=== PATIENT | male | born 1970 | race Caucasian/White ===

== ENCOUNTER 2018-06-23 14:47 | Emergency (ER) | payer MEDICARE, MEDICAID, SELFPAY ==
[2018-06-23 15:43] VITALS: BP 129/83; PULSE 92; RESP 18; TEMP 36.7; O2SAT 99
--- NOTE | 2018-06-23 16:01 | W.ED.GENAD ---
Discharge Plan Disposition Patient Disposition: HOME Condition: Good Discharge Details Chief Complaint: GenMedical Clinical Impression: Concern about sexually transmitted disease in male without diagnosis Reason For Visit: exposure Primary Care Provider: Joshua Roque ED Provider: Wan James Meds and New Rx's Prescriptions: Continue fluoxetine [Prozac] 40 MG capsule 40 mg PO DAILY RF: 0 clonazepam 1 MG tablet 0.5 mg PO BID RF: 0 dextroamphetamine-amphetamine [Adderall] 20 MG tablet 20 mg PO BID RF: 0 bupropion HCl 150 MG tablet extended release 12 hr 150 mg PO DAILY RF: 0 Discharge Instructions Instructions: Sexually Transmitted Diseases (ED) Additional Instructions: You will need to follow up with your PCP later this week to be sure all studies are completed and that you have the results. Return to ED for questions/problems. Referrals: Joshua Roque [Primary Care Provider] - Medical Decision Making MDM Narrative Medical decision making narrative: Discussed with patient the low likelihood of testing to be positive since he isn't even sure any of the story he has been told is true or not. He has no symptoms of any STI or disease process. He is extremely anxious and worried, however, and wants to be tested anyway. We discussed other STI and that if we were going to test for HIV, we should probably test for all of them. He agreed with this. I also instructed him that he will need to follow up with his PCP so we can make sure all the results are followed up and conveyed to him. He agrees to this. We will draw blood and we will get urine and discharge home. HPI - General Adult General Mode of arrival: ambulatory. Date/Time Provider Initiated Documentation: 06/23/18 15:52. Limitations to Documentation: no limitations. Information obtained by: patient. HPI Narrative: Patient presents to ED asking for HIV testing. He just found out that his girlfriend has been having sexual relations with someone who he says has AIDS. He is extremely upset and anxious. He denies any physical complaints. He has no fevers, sweats, weight loss, enlarged nodes, rash, penile lesions, discharge. He is not suicidal or homicidal. He does have a PCP. As far as he is aware, he has no type of chronic disease just psychiatric problems. Related Data Home Medications Medication Instructions Recorded Confirmed clonazepam 0.5 mg PO BID 05/14/13 06/23/18 dextroamphetamine-amphetamine 20 mg PO BID 02/05/17 06/23/18 [Adderall] fluoxetine [Prozac] 40 mg PO DAILY tab-cap 04/24/17 06/23/18 bupropion HCl 150 mg PO DAILY 11/14/17 06/23/18 Allergies Allergy/AdvReac Type Severity Reaction Status Date / Time No Known Allergies Allergy Unverified 11/14/17 10:18 General Stated Complaint: Patient Exposure Risk ALINE: 4 Review of Systems Constitutional Denies chills, Denies fatigue, Denies fever(s), Denies headache(s), Denies malaise, Denies night sweats, Denies weakness and Denies weight loss ENT Denies otalgia, Denies headache(s), Denies nasal congestion, Denies nasal discharge and Denies sore throat Cardiovascular Denies chest pain, Denies rapid heart rate, Denies palpitations and Denies dyspnea Respiratory Denies cough and Denies dyspnea Gastrointestinal Denies abdominal pain, Denies diarrhea, Denies nausea and Denies vomiting Genitourinary Denies hematuria, Denies genital lesions, Denies genital pain, Denies dysuria, Denies penile discharge, Denies scrotal swelling and Denies testicular pain Musculoskeletal Denies back pain, Denies myalgias, Denies arthralgias, Denies numbness and Denies tingling Integumentary/Breasts Denies lesions, Denies rash and Denies sores Neurologic Denies confusion, Denies headache(s), Denies numbness, Denies tingling, Denies paresthesias and Denies weakness Psychiatric Reports anxiety, Denies confusion, Denies homicidal ideation and Denies suicidal ideation Endocrine Denies fatigue and Denies palpitations [facility] Medical History Anxiety (Chronic) Depression (Chronic) Social History Smoking/Tobacco Use Status: Never alcohol intake: current alcohol intake frequency: a few times a month substance use type: does not use Exam Const General: cooperative, healthy appearing and no acute distress Orientation: alert and oriented x3 HENMT Head: normocephalic and atraumatic Eyes Conjunctivae: conjunctivae normal Pupils: PERRL EOM: EOM intact bilaterally Neck Neck: no lymphadenopathy and supple Resp Effort & Inspection: normal respiratory effort Auscultation: clear to auscultation bilaterally Cardio Rate: regular rate Rhythm: regular rhythm Heart Sounds: S1 normal and S2 normal Skin Rashes: no rashes Neuro General: alert, oriented x3, gait normal, moves all extremities and CN's II-XI intact bilaterally Sensory Exam: no sensory deficits noted Psych Appearance: well kempt Mental Status: mental status grossly normal Speech and Movement: speech and movement normal Mood: congruent mood Affect: normal affect Attitude: cooperative Thought Process: normal Thought Content: normal Insight: insight good Judgment: judgment good Course Vital Signs Temperature 98.1 F 06/23/18 15:43 Pulse 92 H 06/23/18 15:43 Respiratory Rate 18 06/23/18 15:43 Blood Pressure 129/83 06/23/18 15:43 Pulse Oximetry 99 06/23/18 15:43 Temperature 98.1 F 06/23/18 15:43 Pulse 92 H 06/23/18 15:43 Respiratory Rate 18 06/23/18 15:43 Blood Pressure 129/83 06/23/18 15:43 Pulse Oximetry 99 06/23/18 15:43
--- NOTE | 2018-06-23 16:04 | ED.GENADUL_ITS ---
Discharge Plan Disposition Patient Disposition: HOME Condition: Good Discharge Details Chief Complaint: GenMedical Clinical Impression: Concern about sexually transmitted disease in male without diagnosis Reason For Visit: exposure Primary Care Provider: Joshua Roque ED Provider: Wan James Meds and New Rx's Prescriptions: Continue fluoxetine [Prozac] 40 MG capsule 40 mg PO DAILY RF: 0 clonazepam 1 MG tablet 0.5 mg PO BID RF: 0 dextroamphetamine-amphetamine [Adderall] 20 MG tablet 20 mg PO BID RF: 0 bupropion HCl 150 MG tablet extended release 12 hr 150 mg PO DAILY RF: 0 Discharge Instructions Instructions: Sexually Transmitted Diseases (ED) Additional Instructions: You will need to follow up with your PCP later this week to be sure all studies are completed and that you have the results. Return to ED for questions/ problems. Referrals: Joshua Roque [Primary Care Provider] - Medical Decision Making MDM Narrative Medical decision making narrative: Discussed with patient the low likelihood of testing to be positive since he isn't even sure any of the story he has been told is true or not. He has no symptoms of any STI or disease process. He is extremely anxious and worried, however, and wants to be tested anyway. We discussed other STI and that if we were going to test for HIV, we should probably test for all of them. He agreed with this. I also instructed him that he will need to follow up with his PCP so we can make sure all the results are followed up and conveyed to him. He agrees to this. We will draw blood and we will get urine and discharge home. HPI - General Adult General Mode of arrival: ambulatory . Date/Time Provider Initiated Documentation: 06/23/18 15:52 . Limitations to Documentation: no limitations . Information obtained by: patient . HPI Narrative: Patient presents to ED asking for HIV testing. He just found out that his girlfriend has been having sexual relations with someone who he says has AIDS. He is extremely upset and anxious. He denies any physical complaints. He has no fevers, sweats, weight loss, enlarged nodes, rash, penile lesions, discharge. He is not suicidal or homicidal. He does have a PCP. As far as he is aware, he has no type of chronic disease just psychiatric problems. Related Data Home Medications Medication Instructions Recorded Confirmed clonazepam 0.5 mg PO BID 05/14/13 06/23/18 dextroamphetamine-amphetamine 20 mg PO BID 02/05/17 06/23/18 [Adderall] fluoxetine [Prozac] 40 mg PO DAILY tab-cap 04/24/17 06/23/18 bupropion HCl 150 mg PO DAILY 11/14/17 06/23/18 Allergies Allergy/AdvReac Type Severity Reaction Status Date / Time No Known Allergies Allergy Unverified 11/14/17 10:18 General Stated Complaint: Patient Exposure Risk ALINE: 4 Review of Systems Constitutional Denies chills, Denies fatigue, Denies fever(s), Denies headache(s), Denies malaise, Denies night sweats, Denies weakness and Denies weight loss ENT Denies otalgia, Denies headache(s), Denies nasal congestion, Denies nasal discharge and Denies sore throat Cardiovascular Denies chest pain, Denies rapid heart rate, Denies palpitations and Denies dyspnea Respiratory Denies cough and Denies dyspnea Gastrointestinal Denies abdominal pain, Denies diarrhea, Denies nausea and Denies vomiting Genitourinary Denies hematuria, Denies genital lesions, Denies genital pain, Denies dysuria, Denies penile discharge, Denies scrotal swelling and Denies testicular pain Musculoskeletal Denies back pain, Denies myalgias, Denies arthralgias, Denies numbness and Denies tingling Integumentary/Breasts Denies lesions, Denies rash and Denies sores Neurologic Denies confusion, Denies headache(s), Denies numbness, Denies tingling, Denies paresthesias and Denies weakness Psychiatric Reports anxiety, Denies confusion, Denies homicidal ideation and Denies suicidal ideation Endocrine Denies fatigue and Denies palpitations [facility] Medical History Anxiety (Chronic) Depression (Chronic) Social History Smoking/Tobacco Use Status: Never alcohol intake: current alcohol intake frequency: a few times a month substance use type: does not use Exam Const General: cooperative, healthy appearing and no acute distress Orientation: alert and oriented x3 HENMT Head: normocephalic and atraumatic Eyes Conjunctivae: conjunctivae normal Pupils: PERRL EOM: EOM intact bilaterally Neck Neck: no lymphadenopathy and supple Resp Effort & Inspection: normal respiratory effort Auscultation: clear to auscultation bilaterally Cardio Rate: regular rate Rhythm: regular rhythm Heart Sounds: S1 normal and S2 normal Skin Rashes: no rashes Neuro General: alert, oriented x3, gait normal, moves all extremities and CN's II-XI intact bilaterally Sensory Exam: no sensory deficits noted Psych Appearance: well kempt Mental Status: mental status grossly normal Speech and Movement: speech and movement normal Mood: congruent mood Affect: normal affect Attitude: cooperative Thought Process: normal Thought Content: normal Insight: insight good Judgment: judgment good Course Vital Signs Temperature 98.1 F 06/23/18 15:43 Pulse 92 H 06/23/18 15:43 Respiratory Rate 18 06/23/18 15:43 Blood Pressure 129/83 06/23/18 15:43 Pulse Oximetry 99 06/23/18 15:43 Temperature 98.1 F 06/23/18 15:43 Pulse 92 H 06/23/18 15:43 Respiratory Rate 18 06/23/18 15:43 Blood Pressure 129/83 06/23/18 15:43 Pulse Oximetry 99 06/23/18 15:43
[2018-06-23 17:32] VITALS: BP 138/88; PULSE 85; RESP 18; TEMP 37.6; O2SAT 99
[2018-06-26 11:11] LABS: Syphilis Serology (RPR) Negative (Negative)
[2018-06-26 11:13] LABS: Hepatitis B Surface Ag Negative (NEGAT)
[2018-06-26 11:23] LABS: Hepatitis C Ab w Rflx HCV PCR Negative (NEGAT)
[2018-06-26 14:44] LABS: Chlamydia Result Negative; GC Result Negative
== END 2018-06-23 17:34 | disposition home or self-care (01) ==
PROVIDERS: Emergency Provider Emergency Medicine; PCP Family Medicine
DX: F41.8 Other specified anxiety disorders (principal); Z77.21 Contact with and (suspected) exposure to potentially hazardous body fluids
CPT/HCPCS: 36415; 86803; 87340; 87491; 87591; 99283; 86592

== ENCOUNTER 2018-09-19 17:38 | Emergency (ER) | payer MEDICARE, MEDICAID, SELFPAY ==
--- NOTE | 2018-09-19 17:50 | DI.RAD_ITS ---
SYMPTOM/DIAGNOSIS: COUGH PA AND LATERAL CHEST: Comparison is made with 14 November 2017. The heart size is normal. The lungs are well inflated and clear. No infiltrate or effusion is seen. IMPRESSION: Negative chest x-ray
[2018-09-19 17:51] VITALS: BP 141/90; PULSE 88; RESP 18; TEMP 36.2; O2SAT 98
--- NOTE | 2018-09-19 17:52 | W.ED.GENAD ---
Discharge Plan Disposition Patient Disposition: HOME Condition: Fair Discharge Details Chief Complaint: RespSymp Clinical Impression: URI (upper respiratory infection) Primary Care Provider: Joshua Roque ED Provider: Angelique Ashley Home Meds and New Rx's Prescriptions: New benzonatate [Tessalon Perles] 100 mg capsule 100 mg PO QID PRN (Reason: cough) Qty: 10 RF: 0 lidocaine HCl [Lidocaine Viscous] 2 % solution 10 ml MM Q3H PRN (Reason: mouth pain) Qty: 100 RF: 0 Continue fluoxetine [Prozac] 40 MG capsule 40 mg PO DAILY RF: 0 clonazepam 1 MG tablet 0.5 mg PO BID RF: 0 dextroamphetamine-amphetamine [Adderall] 20 MG tablet 20 mg PO BID RF: 0 Discharge Instructions Instructions: Upper Respiratory Infection (ED) Additional Instructions: Encourage hydration. Tylenol and/or ibuprofen as needed for discomfort. Tessalon Perles as prescribed to help with cough suppressant. Viscous lidocaine to help the sore throat as needed. Take care to not overdose on Tylenol or anti-inflammatory as these are often found an [id number] cough medications and cold medications as well. Try sleeping in a more upright position as this should help with sleep. You may try nasal saline or Afrin nasal spray to help with congestion. If using Afrin, please do not use more than 3 days in a row. Please follow-up with primary care next week if symptoms have not improved. At this point, illness sounds viral in nature. However, if you develop chest pain, shortness of breath, difficulty breathing, high fevers or other new/worsening symptoms please seek care urgently once again. Stand Alone Forms: Work Release Discharge Data Discharge Date/Time-TO BE ENTERED AT DEPARTURE: 09/19/18 19:24 Medical Decision Making Patient 47-year-old male presents today with chief complaint of URI symptoms. He reports that symptoms began approximate 5 days ago. He is endorsing bilateral ear discomfort, tearing from both eyes, congestion, sore throat and cough. Denies any history of respiratory disease. Denies any chest pain. States that he has noted a scant amount of hemoptysis x1 today. Denies any fevers but states that he has been sweating more frequently. States that he has had 2 episodes of posttussive emesis. Denies abdominal pain, nausea, diarrhea or change in bowel habits. No recent travel. No posterior calf pain. Vital signs are within normal limits, no tachycardia or hypoxia. Patient is afebrile. On exam, patient is resting comfortably. No cough is appreciated at time of the visit. HEENT exam significant for erythematous posterior oropharynx. No swelling or exudate. Lungs are clear. Heart sounds are normal. We will obtain influenza screening and chest x-ray. Discussed this plan with the patient who agrees Influenza A and B-. Chest x-ray reviewed by radiologist. Clear lungs. No pneumothorax, no sizable pleural effusion. No cardiomegaly. Discussed the findings with the patient. Advised that symptoms are likely viral etiology. I encouraged hydration. Tylenol interval improvement as needed for discomfort. Patient will be prescribed Tessalon Perles to help with cough suppressant. We discussed that OTC medications may contain Tylenol or NSAID. ADvised he look carefully at packaging and advised against usage. Discussed home and OTC options to help with discomfort. We discussed new/worsening symptoms and hwen to seek care urgently once again. Advised f/u with PCP in one week if not improved. Work note given at patient request. All of his questions adn concerns were addressed, he is in agreement with this plan. HPI General Mode of arrival: ambulatory. Date/Time Provider Initiated Documentation: 09/19/18 17:41. Limitations to Documentation: no limitations. Information obtained by: patient. History of Present Illness 47 year old M presents to the emergency department with the chief complaint of URI, described as moderate, Quality is described as aching, and is localized to the face (bilateral ear pain) and mouth (sore throat). Patient denies radiation to back, neck and abdomen. Patient started experiencing this day(s) (5) and it has been constant. No relieving factors improve symptom(s), No exacerbating factors reported . Patient notes cough, diaphoresis and fever/chills; denies chest pain, headaches, loss of appetite, nausea/vomiting, rash, shortness of breath and weakness. Patient did receive the following treatments prior to arrival, other (OTC cold medications) Related Data Home Medications Medication Instructions Recorded Confirmed clonazepam 0.5 mg PO BID 05/14/13 09/19/18 dextroamphetamine-amphetamine 20 mg PO BID 02/05/17 09/19/18 [Adderall] fluoxetine [Prozac] 40 mg PO DAILY tab-cap 04/24/17 09/19/18 benzonatate [Tessalon Perles] 100 mg PO QID PRN #10 cap 09/19/18 lidocaine HCl [Lidocaine Viscous] 10 ml MM Q3H PRN #100 ml 09/19/18 Previous Rx's Medication Instructions Recorded benzonatate [Tessalon Perles] 100 mg PO QID PRN #10 cap 09/19/18 lidocaine HCl [Lidocaine Viscous] 10 ml MM Q3H PRN #100 ml 09/19/18 Allergies Allergy/AdvReac Type Severity Reaction Status Date / Time No Known Allergies Allergy Unverified 09/19/18 18:01 General ALINE: 4 Review of Systems Constitutional Reports as per HPI and Denies headache(s) Eyes Reports as per HPI, Denies eye discharge and Denies irritation ENT Reports as per HPI, Denies change in voice, Denies ear discharge, Reports otalgia, Denies headache(s), Reports nasal congestion, Reports nasal discharge, Denies neck pain, Reports sinus pain, Reports sinus pressure, Reports sore throat, Denies throat swelling and Denies tongue swelling Cardiovascular Reports as per HPI, Denies chest pain and Denies dyspnea Respiratory Reports cough, Reports hemoptysis (endorses one episode of blood tinged sputum prior to arrival), Denies dyspnea, Denies stridor and Denies wheezing Gastrointestinal Reports as per HPI, Denies abdominal pain, Denies change in bowel habits, Denies nausea and Denies vomiting Musculoskeletal Denies neck pain Integumentary/Breasts Reports as per HPI and Denies rash Neurologic Denies headache(s) Allergic/Immunologic Denies throat swelling, Denies tongue swelling and Denies wheezing PFSH Anxiety (Chronic) Depression (Chronic) Medical History Anxiety (Chronic) Depression (Chronic) Social History Smoking/Tobacco Use Status: Never alcohol intake: current alcohol intake frequency: a few times a month substance use type: does not use Social History Smoking/Tobacco Use Status: Never alcohol intake: current alcohol intake frequency: a few times a month substance use type: does not use Exam Const General: cooperative, healthy appearing, comfortable, no acute distress, well developed and well groomed Nutritional Appearance: average body habitus and well nourished Orientation: alert and awake [facility] Head: normal to inspection, normocephalic and atraumatic Ears: hearing grossly normal bilaterally, external ears normal and TM's normal bilaterally General nose exam: external nose normal and nares normal Face and sinus: normal facial exam, sinuses nontender and face symmetric Mouth: oral mucosae normal, lip normal, tongue normal, oropharynx normal, moist mucous membranes, no muffled voice and no trismus Teeth and gingiva: dentition normal Throat: posterior oropharynx abnormal (mild erythema), tonsils normal and uvula midline Eyes General: appearance normal, both eyes and all related structures Neck Neck: normal visual inspection, full ROM, no lymphadenopathy and no meningeal signs Resp Effort & Inspection: normal respiratory effort, able to speak in complete sentences and no respiratory distress Auscultation: clear to auscultation bilaterally, no rales, no rhonchi and no wheezes Cardio Rate: regular rate Rhythm: regular rhythm Heart Sounds: S1 normal and S2 normal Skin General skin exam: no rashes or lesions noted Neuro General: alert and awake Cognition: normal cognition Speech: speech normal Gait: normal gait Psych Appearance: grossly normal and well kempt Mental Status: mental status grossly normal Speech and Movement: speech and movement normal
--- NOTE | 2018-09-19 18:17 | NUR.NOTE ---
To Xray with SHANDA Witt. Flu swab sent to labNursing Note:
--- NOTE | 2018-09-19 18:46 | DI.VRAD_ITS ---
EXAM: XR Chest, 2 Views EXAM DATE/TIME: 09/19/2018 5:51 PM CLINICAL HISTORY: 47 years old, male; Signs and symptoms; Cough TECHNIQUE: XR of the chest, 2 views. COMPARISON: CR CHEST 2 VIEWS PA,LAT 11/14/2017 10:51 AM FINDINGS: Lungs: Clear lungs. Pleural space: No pneumothorax. No sizable pleural effusion. Heart/Mediastinum: No cardiomegaly. Bones/joints: Unremarkable. IMPRESSION: Clear lungs. Dictated and Authenticated by: Ravi Randhawa MD. Ordering:HO MCKENNA MD
[2018-09-19 19:07] VITALS: BP 153/89; PULSE 88; RESP 18; TEMP 36.6; O2SAT 95
== END 2018-09-19 19:24 | disposition home or self-care (01) ==
LOC: ER 19:20
PROVIDERS: Emergency Provider Physician Assistant; PCP Family Medicine
DX: J06.9 Acute upper respiratory infection, unspecified (principal); R05 Cough; H92.03 Otalgia, bilateral; J02.9 Acute pharyngitis, unspecified
CPT/HCPCS: 87449; 99283; 71046; 99284

== ENCOUNTER 2018-12-26 02:56 | Emergency (ER) | payer MEDICARE, SELFPAY ==
[2018-12-26] VITALS (22 sets, daily range): BP systolic 134–164; BP diastolic 83–102; PULSE 86–122; RESP 10–28; TEMP 36.2; O2SAT 97–100
--- NOTE | 2018-12-26 03:11 | ED.GENADUL_ITS ---
Discharge Plan Disposition Patient Disposition: HOME Condition: Stable Discharge Details Chief Complaint: Anxiety Clinical Impression: Chest pain, Abdominal pain, Anxiety, Hypokalemia Primary Care Provider: Joshua Roque ED Provider: Lissette Navarro Home Meds and New Rx's Prescriptions: Continued fluoxetine [Prozac] 40 MG capsule 40 mg PO DAILY RF: 0 clonazepam 1 MG tablet 0.5 mg PO BID RF: 0 lidocaine HCl [Lidocaine Viscous] 2 % solution 10 ml MM Q3H PRN (Reason: mouth pain) Qty: 100 RF: 0 dextroamphetamine-amphetamine [Adderall] 20 MG tablet 20 mg PO BID RF: 0 Discontinued benzonatate [Tessalon Perles] 100 mg capsule 100 mg PO QID PRN (Reason: cough) Qty: 10 RF: 0 Discharge Instructions Instructions: Chest Pain (ED), Hypokalemia (ED), Abdominal Pain (ED), Anxiety (ED) Additional Instructions: Your CT scan did not show any concerning findings. Your labs showed that your potassium was low. Please return immediately to the emergency department if you develop any new or worsening symptoms or if you become otherwise concerned. It is extremely important that you have your stress test on Monday morning as scheduled as we discussed, and also that you follow-up with your psychiatrist Monday afternoon as scheduled. It is also very important that you schedule an appointment to follow-up with your primary care doctor soon as possible. Please take the 20 mEq of potassium that was given to you here in the emergency department tomorrow morning as we discussed. Stand Alone Forms: Work Release Referrals: Joshua Roque [Primary Care Provider] - Discharge Data Discharge Date/Time-TO BE ENTERED AT DEPARTURE: 12/26/18 09:10 Medical Decision Making <Faustino Morfin MD - Last Filed: 12/26/18 21:28> 48 yo male who denies chronic medical problems, has hx of anxiety and depression comes in with chest pain and epigastric pain since 2am. He states he has had pain like this in the past that he thguht was from his anxiety but he took his klonopin without relief today so came here. HE has pain with palpation of the upper abdomen, clear lungs, no jvd. No hypoxia or tachycardia or evidence of dvt so doubt pe. Given the chest and abd pain will eval for pancreatitis, dissection among other pathology. His heart score is 1, will sent troponin. pt remains HD stable, labs unremarkable, awaiting ct results, I do not see any acute abnormalities other than a gallstone without cholecystitis on my read. He does have constant shaking of his legs but when distracted stops this and still feels anxious at this time, no longer having chest pain, will order delta troponin and ecg ct shows no acute findings. The patient is asking for more pain medications but he seems already drowsy and do not feel it is safe to give more pain meds at this time. Awaiting repeat ecg and troponin second troponin and ecg unremarkable. He is still requesting pain meds but he is drowsy on exam and I do not feel comfortable giving him any additional pain meds at this time. He then started to discuss how much his life sucks right now and how he is having multiple prblems with his family. He is now stating he is sucidal. My suspicion is that his earlier compalints of pain were psychosomatic. He is not able to relay any plan of self harm to me. Will obtain mental health consult pt will be signed out to oncoming provider pending mental health evaluation Differential Diagnosis acs, pe, dissection, anxiety, pancreatitis Imaging Data Radiologic Study: Attestation: I personally reviewed and interpreted this imaging study as follows: Imaging: CT Scan Radiologist's impression: no acute findings Lab Data Lab results reviewed: Yes I reviewed the patient's lab results. ECG Data Attestation: I personally reviewed and interpreted this ECG (s) as follows: Prior ECG tracings: not available for review Interpretation: sinus rythm, rate of 100, pr 132, qtc 462, no acute st t wave ischemic findings 2nd ekg shows rate of 95, sinus rhythm, no acute st t wave changes <Lissette Navarro MD - Last Filed: 01/08/19 11:53> Patient signed out to me by Dr. Morfin at time of shift change pending mental health evaluation. At the time of my encounter, patient reporting that he has had some suicidal thoughts, but has no plan to harm himself. Patient reports that he just wants some help in his life and feels like he needs to just take a break for a few days so I can reset. He denies having any pain. Per mental health: Patient offered inpatient care but declined, and would rather go to care bed. There are currently no care bed openings, but there is an anticipated opening in the next day or 2 in [facility]. I did have a lengthy discussion with the patient regarding this option, and he stated that he was comfortable going home for a few days if need be waiting for the bed, as long as he knew that he would be able to go there for a little while to reset. He again denies any active suicidality. Unclear etiology of patient's earlier chest pain, possibly related to anxiety, however patient has not had stress test in the past. Plan for stress test. Patient has an appointment on Monday with a psychiatrist in [place], will plan for stress test here Monday morning in case patient is placing care but at that time. Patient verbalized understanding of this plan and is amenable. I did have a lengthy discussion with the patient regarding return to emergency department precautions, including that he may return to the emergency department at any time if he feels that his condition is worsening, and importance of outpatient follow-up with PCP, psychiatrist, and stress test. Patient verbalizes understanding of the plan and is amenable. HPI <Faustino Morfin MD - Last Filed: 12/26/18 21:28> General Mode of arrival: ambulatory . Date/Time Provider Initiated Documentation: 12/26/18 02:57 . Limitations to Documentation: no limitations . Information obtained by: patient . History of Present Illness 48 year old M presents to the emergency department with the chief complaint of chest pain, described as severe, with intensity rated at 9. Quality is described as sharp, and is localized to the chest. Patient reports no radiation. Patient started experiencing this hour(s) (1) and it has been constant. No relieving factors improve symptom(s), No exacerbating factors reported . Patient notes no other symptoms.. Patient did receive the following treatments prior to arrival, none Related Data Home Medications Medication Instructions Recorded Confirmed clonazepam 0.5 mg PO BID 05/14/13 09/19/18 dextroamphetamine-amphetamine 20 mg PO BID 02/05/17 09/19/18 [Adderall] fluoxetine [Prozac] 40 mg PO DAILY tab-cap 04/24/17 09/19/18 lidocaine HCl [Lidocaine Viscous] 10 ml MM Q3H PRN #100 ml 09/19/18 Previous Rx's Medication Instructions Recorded lidocaine HCl [Lidocaine Viscous] 10 ml MM Q3H PRN #100 ml 09/19/18 Allergies Allergy/AdvReac Type Severity Reaction Status Date / Time No Known Allergies Allergy Unverified 12/26/18 02:59 General ALINE: 4 Review of Systems <Faustino Morfin MD - Last Filed: 12/26/18 21:28> Review of Systems All systems reviewed & are unremarkable except as noted in HPI and below Constitutional Denies chills ENT Denies change in voice Cardiovascular Denies dyspnea Respiratory Denies cough and Denies dyspnea Gastrointestinal Denies vomiting Musculoskeletal Denies joint swelling Integumentary/Breasts Denies rash Psychiatric Denies depression Allergic/Immunologic Denies urticaria PFSH <Faustino Morfin MD - Last Filed: 12/26/18 21:28> Medical History Anxiety (Chronic) Depression (Chronic) Social History Smoking/Tobacco Use Status: Never Alcohol Intake: current Alcohol Intake frequency: a few times a month Drug use: Never Substance use type: does not use Do you feel safe in your relationship?: Yes Exam <Faustino Morfin MD - Last Filed: 12/26/18 21:28> Const General: anxious Orientation: alert HENMT Head: normal to inspection Ears: external ears normal General nose exam: external nose normal Mouth: moist mucous membranes Eyes General: appearance normal, both eyes and all related structures Neck Neck: normal visual inspection Resp Effort & Inspection: normal respiratory effort and able to speak in complete sentences Cardio Rate: regular rate Skin General skin exam: no rashes or lesions noted Neuro General: alert and oriented x3 Extrem General: normal to inspection Psych Mental Status: mental status grossly normal Sign Out <Faustino Morfin MD - Last Filed: 12/26/18 21:28> Sign Out Data: Sign Out Comment: f/u on mental health results Last updated by Faustino Morfin MD at 12/26/18 07:46
[2018-12-26] MEDS: Aspirin 81 MG CHEW 324 MG CH (03:12)
[2018-12-26] MEDS: LORazepam 2 MG/ML VIAL IVP (03:13)
[2018-12-26 03:22] LABS: Abs Immature Grans 0.02 k/cumm (0.0-0.09); Absolute Basophil Count 0.03 k/cumm (0.0-0.2); Absolute Eosinophil Count 0.24 k/cumm (0.0-0.7); Absolute Lymphocyte Count 2.92 k/cumm (1.2-3.4); Absolute Monocyte Count 1.31 k/cumm (0.11-0.7); Basophils % 0.3; Eosinophils % 2.4; HCT 44.7 % (40.0-50.0); HGB 16.5 g/dL (13.5-17.5); Immature Grans % 0.2; Lymphocytes % 28.9; Mean Corp. HGB Concentration 36.9 g/dL (32.0-36.0); Mean Corpuscular Hemoglobin 31.6 pg (27.0-33.0); Mean Corpuscular Volume 85.6 fL (80-95); Mean Platelet Volume 9.5 fL (8.0-11.0); Monocytes % 12.9; Neutrophils % 55.3; Platelet Count 241 x1000/uL (130-400); RBC 5.22 m/cumm (4.50-6.00); RBC Distribution Width 12.4 % (11.8-14.1); White Blood Cell Count 10.12 k/cumm (4.4-10.8)
[2018-12-26] MEDS: fentaNYL 100 MCG/2 ML VIAL IVP (03:24)
[2018-12-26] MEDS: Normal Saline 1,000 ML 1000 ML IV (03:24)
[2018-12-26 03:38] LABS: PTT Activated 20.8 sec (21.0-31.4); Prothrombin Time 9.9 sec (9.3-11.0)
[2018-12-26 03:42] LABS: ALT 39 U/L (12-78); AST 21 U/L (15-37); Alkaline Phosphatase 65 U/L (46-116); Anion Gap 8.6 mmol/L (3-11); BUN 8 mg/dL (7-18); Bilirubin, Direct 0.21 mg/dL (0.00-0.20); Bilirubin, Total 0.9 mg/dL (0.2-1.0); CO2 30.4 mmol/L (21.0-32.0); CREATININE 0.99 mg/dL (0.70-1.30); Calcium 8.8 mg/dL (8.5-10.1); Chloride 103 mmol/L (98-107); Glucose 98 mg/dL (70-100); Lipase 144 U/L (73-393); Sodium 142 mmol/L (136-145); Total Protein 6.8 g/dL (6.4-8.2); Troponin I < 0.02 ng/mL (0.00-0.06)
--- NOTE | 2018-12-26 03:45 | DI.CT_ITS ---
SYMPTOM/DIAGNOSIS: CHEST AND ABD PAIN CHEST CT AND CTA ABDOMEN AND PELVIS: CT angiography was performed with multi slice acquisition and multi planar and 3D reconstruction. CHEST: The examination was performed with an intravenous injection of 82 cc's of Omnipaque 350. The pulmonary arteries are normal with no evidence of embolic disease. There is no evidence of an aortic aneurysm or dissection. The lungs are unremarkable. There is no evidence of a pleural effusion or pneumothorax. The heart is of normal size. There is no pericardial effusion. There is nothing to suggest right heart strain. There is no evidence of lymphadenopathy. No acute bony abnormality is seen. The soft tissues are intact. IMPRESSION: No acute abnormality is identified in the chest. ABDOMEN AND PELVIS: The study was conducted according to the usual protocol with an intravenous administration of 82 cc's of Omnipaque 350. The aorta is normal. There is no evidence of a celiac or superior mesenteric artery occlusion. The renal arteries are normal. The iliac arteries are also normal. The liver is unremarkable. There is an 11-12 mm calcified gallstone in the gallbladder. The pancreas and spleen are intact. There is no evidence of ductal dilatation. The kidneys are normal. The adrenals are intact. There is no evidence of bowel obstruction. No localized bowel abnormality is seen and there is nothing to suggest an acute appendix. The reproductive organs as visualized are normal. The bladder is intact. There is no evidence of an intra-abdominal or pelvic mass or adenopathy. There is nothing to suggest free air or fluid in the intraperitoneal space. Note is made of a mild old compression fracture involving L 3. SUMMARY: No acute abnormality is demonstrated in the abdomen. Note is made of cholelithiasis.
[2018-12-26] MEDS: Omnipaque 350 MG/ML 100 ML BTL IJ (04:10)
[2018-12-26] MEDS: LORazepam 1 MG TAB PO (04:31)
--- NOTE | 2018-12-26 04:58 | DI.VRAD_ITS ---
EXAM: CT Angiography Chest With Contrast EXAM DATE/TIME: 12/26/2018 3:06 AM CLINICAL HISTORY: 48 years old, male; Pain; Chest pain; Other: Mid chest; Abdominal pain; Localized; Upper; Prior surgery; Surgery date: 6+ months; Surgery type: Penile implant; Patient HX: Chest pain mid chest and upper abd pain TECHNIQUE: Axial computed tomographic angiography images of the chest with intravenous contrast using CT angiography protocol. All CT scans at this facility use at least one of these dose optimization techniques: automated exposure control; mA and/or kV adjustment per patient size (includes targeted exams where dose is matched to clinical indication); or iterative reconstruction. MIP reconstructed images were created and reviewed. CONTRAST: Contrast Material: 82 ml of Omnipaque 350; Contrast Route: IV COMPARISON: CR XR CHEST 2V PA LATERAL 09/19/2018 6:16 PM FINDINGS: Pulmonary arteries: Unremarkable. No obvious pulmonary emboli. Aorta: Unremarkable. No aortic aneurysm. No aortic dissection. Lungs: Unremarkable. No consolidation. No masses. No suspicious nodules. Pleural space: Unremarkable. No pneumothorax. No pleural effusion. Heart: Unremarkable. No pericardial effusion. No obvious heart strain. Lymph nodes: Unremarkable. No enlarged lymph nodes. Bones/joints: Unremarkable. No acute fracture. Soft tissues: Unremarkable. IMPRESSION: No acute findings. EXAM: CT Angiography Abdomen and Pelvis With Contrast EXAM DATE/TIME: 12/26/2018 3:06 AM CLINICAL HISTORY: 48 years old, male; Pain; Chest pain; Other: Mid chest; Abdominal pain; Localized; Upper; Prior surgery; Surgery date: 6+ months; Surgery type: Penile implant; Patient HX: Chest pain mid chest and upper abd pain TECHNIQUE: Axial computed tomographic angiography images of the abdomen and pelvis with intravenous contrast material, including non-contrast images if performed. All CT scans at this facility use at least one of these dose optimization techniques: automated exposure control; mA and/or kV adjustment per patient size (includes targeted exams where dose is matched to clinical indication); or iterative reconstruction. MIP reconstructed images were created and reviewed. CONTRAST: Contrast Material: 82 ml of Omnipaque 350; Contrast Route: IV COMPARISON: CR XR CHEST 2V PA LATERAL 09/19/2018 6:16 PM FINDINGS: VASCULATURE: Aorta: No aortic aneurysm. No aortic dissection. Celiac trunk and mesenteric arteries: No occlusion or significant stenosis. Renal arteries: No occlusion or significant stenosis. Right iliac arteries: No occlusion or significant stenosis. Left iliac arteries: No occlusion or significant stenosis. ABDOMEN: Liver: No mass. Gallbladder and bile ducts: 12 mm gallstone. Pancreas: Unremarkable. No mass. No ductal dilation. Spleen: Unremarkable. No splenomegaly. Adrenals: Unremarkable. No mass. Kidneys and ureters: Unremarkable. No solid mass. No hydronephrosis. Stomach and bowel: Unremarkable. No obstruction. No mucosal thickening. Appendix: No evidence of appendicitis. PELVIS: Bladder: Unremarkable. No mass. Reproductive: Unremarkable as visualized. ABDOMEN and PELVIS: Intraperitoneal space: Unremarkable. No free air. No significant fluid collection. Bones/joints: Old L3 compression deformity. Soft tissues: Unremarkable. Lymph nodes: Unremarkable. No enlarged lymph nodes. IMPRESSION: No acute findings. Cholelithiasis. Dictated and Authenticated by: Adan Lujan MD. Ordering:ERVIN Harmon MD
[2018-12-26 05:30] LABS: Troponin I < 0.02 ng/mL (0.00-0.06)
--- NOTE | 2018-12-26 08:10 | PDOC.MHCN ---
Mental Health Crisis Note Presenting Issue How did you arrive at the ED and why did you come: Beatrice came to [facility] on his own cognition and drove himself. He reported complaints of chest pain and other symptoms of potential panic. He disclosed of some passive suicidal ideation without a plan. Precipitating Factors Beatrice has a history of suicide attempts. He has seen a psychiatrist consistently for over five years. He reports he has been tapering off of Clonazepam and has reduced his dose to only a half mg per day instead of a whole one. He did not want to call his psychiatrist to discuss an increase of dose. He disclosed of stressors related to loss and a current poor relationship. He has concerns as he nears the of his mother's one year anniversary that she is not going to follow through on a tentative plan for this time of year. He expresses concern about his suicidal ideation and reports he would feel more comfortable with a referral and/or knowing there is a safe place for him to go if needed. Disposition BEHAVIOR: digressive but willing to negotiate and discuss his concerns openly and proactively EYE CONTACT: fair MOOD: depressed AFFECT: slightly changeable from full affect to constricted pending on content of conversation/stressors discussed APPETITE: good SLEEP(trouble falling/staying asleep: some trouble sleeping through night, but reports sleep can be restful Plan Beatrice will be discharged from [facility]. A referral to a crisis bed in [facility] has been made. Beatrice will return to the emergency room call [facility] emergency line if symptoms of anxiety/depression increase. He will call his psychiatrist about medication and/or attend his next appointment on 12-31. Signature Clinician's Name/Title: Bradford Beaver MA [facility]
--- NOTE | 2018-12-26 08:21 | PDOC.MHCN_ITS ---
Mental Health Crisis Note Presenting Issue How did you arrive at the ED and why did you come: Beatrice came to [facility] on his own cognition and drove himself. He reported complaints of chest pain and other symptoms of potential panic. He disclosed of some passive suicidal ideation without a plan. Precipitating Factors Beatrice has a history of suicide attempts. He has seen a psychiatrist consistently for over five years. He reports he has been tapering off of Clonazepam and has reduced his dose to only a half mg per day instead of a whole one. He did not want to call his psychiatrist to discuss an increase of dose. He disclosed of stressors related to loss and a current poor relationship. He has concerns as he nears the of his mother's one year anniversary that she is not going to follow through on a tentative plan for this time of year. He e xpresses concern about his suicidal ideation and reports he would feel more comfortable with a referral and/or knowing there is a safe place for him to go if needed. Disposition BEHAVIOR: digressive but willing to negotiate and discuss his concerns openly and proactively EYE CONTACT: fair MOOD: depressed AFFECT: slightly changeable from full affect to constricted pending on content of conversation/stressors discussed APPETITE: good SLEEP(trouble falling/staying asleep: some trouble sleeping through night, but reports sleep can be restful Plan Beatrice will be discharged from [facility]. A referral to a crisis bed in [facility] has been made. Beatrice will return to the emergency room call [facility] emergency line if symptoms of anxiety/depression increase. He will call his psychiatrist about medication and/or attend his next appointment on 12-31. Signature Clinician's Name/Title: Bradford Beaver MA [facility]
[2018-12-26 08:28] LABS: ETHANOL BLOOD < 3.0 mg/dL (<3)
== END 2018-12-26 09:10 | disposition home or self-care (01) ==
PROVIDERS: Emergency Medicine; Emergency Provider Student in an Organized Health Care Education/Training Program; PCP Family Medicine
DX: R07.9 Chest pain, unspecified (principal); R10.13 Epigastric pain; F41.8 Other specified anxiety disorders; E87.6 Hypokalemia; R45.851 Suicidal ideations
CPT/HCPCS: 36415; 74177; 80053; 80076; 83690; 93005; 96361; 96374; 96375; 99285; 80320; 84484; 85025; 85610; 85730; 93010; J2060; J3010; J3490

== ENCOUNTER 2018-12-31 00:22 | Outpatient (CLI) | payer MEDICARE, SELFPAY ==
--- NOTE | 2018-12-31 11:30 | ETT_ITS ---
*[facility]* *[facility]* [address] [place] [address] Stress Electrocardiography Bill protocol Date of study: 12/31/2018 *PATIENT PRESENTATION* Height: 180.3cm (71in) Blood Pressure: Weight: 100kg (220lb) BSA: 2.26m^2 Referring physician: Lissette Navarro Ordering physician: Lissette Navarro Impressions: Normal study after maximal exercise. Summary: 1. Stress ECG conclusions: The stress ECG is negative. Hercules treadmill score: 13. This score predicts a low risk of cardiac events. 2. Stress: The target heart rate was achieved. 3. Unclear significance of measured hemodynamics. Indication: R07.9. History: REASON FOR TESTING: PATIENT PRESENTED TO THE ER ON 12/26/18 WITH CRAMPING SUBSTERNAL CHEST PAIN (07/25). IN ER TROPONINS WERE NEGATIVE AND EKG SHOWED SINUS RHYTHM. PATIENT STATES THIS EPISODE OF CHEST PAIN LASTED APPROXIMATELY 8 HOURS. HE REPORTS HAVING HAD ANOTHER EPISODE OF CRAMPING SUBSTERNAL CHEST PAIN TWENTY FOUR HOURS LATER THAT LASTED APPROXIMATELY TWO HOURS. PATIENT DENIES CHEST PAIN UPON ARRIVAL TO TESTING TODAY. SIGNIFICANT PAST MEDICAL HISTORY: ANXIETY AND DEPRESSION. SMOKING STATUS: NEVER EXERCISE ROUTINE: DAILY ADL'S. Risk factors: Family history of coronary artery disease. ALLERGIES: NO KNOWN DRUG ALLERGIES. MEDICATIONS: PROZAC 40 MG DAILY (DOES NOT TAKE REGULARLY), CLONAZEPAM 0.5 MG BID (DOES NOT TAKE REGULARLY), LIDOCIANE VISCOUS 2% PRN (DOES NOT TAKE NEEDED), ADDERALL 20 MG BID. Protocol: Bill protocol. Baseline ECG: SINUS RHYTHM. HR 82 BPM. Stress protocol: + +---+ + !Stage !HR !BP (mmHg) ! + +---+ + !Baseline supine !82 !118/74 (89) ! + +---+ + !Baseline standing !85 !110/80 (90) ! + +---+ + !Stage I; 1.7mph, 10degrees; 3 min !111!120/70 (87) ! + +---+ + !Stage II; 2.5mph, 12degrees; 3 min !124!124/70 (88) ! + +---+ + !Stage III; 3.4mph, 14degrees; 3 min!138!138/80 (99) ! + +---+ + !Stage IV; 4.2mph, 16degrees; 3 min !156!150/74 (99) ! + +---+ + !Immediate post stress !145!100/54 (69) ! + +---+ + !Recovery; 3 min !113!170/78 (109)! + +---+ + !Recovery; 6 min !106!120/78 (92) ! + +---+ + !Recovery; 9 min !104!120/80 (93) ! + +---+ + * Stress results: STRESS TEST ENDED IN 12 MINUTES 40 SECONDS DUE TO FATIGUE. NORMAL HEART RATE RESPONSE EXERCISE. HEART RATE SLOW TO COME DOWN IN RECOVERY PHASE. BLOOD PRESSURE DROPPED BY 40 mm/HG AT WITHIN ONE MINUTE OF RECOVERY. BLOOD PRESSURE INCREASED BY 70 mm/Hg AT 3 MINUTES OF RECOVERY. BLOOD PRESSURE RETURNED TO BASELINE AT 6 MINUTES RECOVERY. MAX HEART RATE: 167. 97 % OF TARGET HEART RATE ACHIEVED. MET'S: 13.91. NO ECTOPY. NO ANGINA. NO SIGNIFICANT ST SEGMENT CHANGES. FUNCTIONAL CAPACITY: ABOVE AVERAGE. Maximal heart rate during stress was 167bpm (97% of maximal predicted heart rate). The maximal predicted heart rate was 172bpm. The target heart rate was achieved. The rate-pressure product for the peak heart rate and blood pressure was 29350te Hg/min. Stress ECG: The stress ECG is negative. Hercules treadmill score: 13. This score predicts a low risk of cardiac events. Study data: Faustino Cruz MD supervised and was readily available during the procedure. This study was interpreted by [facility]. Study status: Routine. Consent: The risks, benefits, and alternatives to the procedure were explained to the patient and informed consent was obtained. Procedure: Initial setup. A baseline ECG was recorded. Surface ECG leads and manual cuff blood pressure measurements were monitored. Heart sounds: Normal. Lung sounds: Normal. Treadmill exercise testing was performed using the Bill protocol. Study completion: The patient tolerated the procedure well and was discharged from the lab. Discharge: The patient left the laboratory in stable condition. Birthdate: Patient birthdate: 1970. Sex: Gender: male. Study date: Study date: 12/31/2018. Study time: 00:01 AM. Electronically signed by Faustino Cruz MD 12/31/2018 17:41
== END 2018-12-31 00:42 ==
PROVIDERS: PCP Family Medicine; Visit Provider Student in an Organized Health Care Education/Training Program
DX: R07.9 Chest pain, unspecified (principal); F41.8 Other specified anxiety disorders; Z82.49 Family history of ischemic heart disease and other diseases of the circulatory system
CPT/HCPCS: 93016; 93018; 93017